=== PATIENT | male | born 1955 | race Caucasian/White ===

== ENCOUNTER → 2022-09-11 | Outpatient (CLI) | payer MEDICARE ==
--- NOTE | 2022-09-11 14:00 | CT ---
EXAMINATION TYPE: CT abdomen pelvis w con CT DLP: 1822 mGycm, Automated exposure control for dose reduction was used. DATE OF EXAM: 09/11/2022 12:41 PM COMPARISON: CT abdomen pelvis most recent from 03/05/2016. CLINICAL INDICATION:Male, 66 years old with history of R10.9 ABDOMINAL PAIN; TECHNIQUE: Standard CT of the abdomen and pelvis following the administration of 70 cc of Isovue 30 0 IV contrast material and oral contrast. Coronal and sagittal reformats were performed. FINDINGS: LOWER CHEST: Unremarkable ABDOMEN LIVER: Diffusely hypoattenuating parenchyma. GALLBLADDER AND BILE DUCTS: Cholelithiasis. No ductal dilatation. PANCREAS: Unremarkable. SPLEEN: Unremarkable. ADRENAL GLANDS: Unremarkable. KIDNEYS AND URETERS: No evidence of hydronephrosis or renal calculus. Bilateral renal cysts identifie d with the largest involving the superior pole of the right kidney measuring 4.0 cm and largest invol ving the mid left kidney measuring 3.7 cm nonspecific bilateral perinephric fat stranding. Contrast i s demonstrated within both collecting systems on the delayed phase. PELVIS BLADDER: Unremarkable REPRODUCTIVE: Brachytherapy seeds demonstrated within the prostatectomy bed. ABDOMEN & PELVIS STOMACH AND BOWEL: Stomach and duodenum are unremarkable. No focal wall thickening. Distal colonic di verticulosis without evidence for acute diverticulitis. Enteric contrast reaches the rectum. The appe ndix is within normal limits. No evidence of bowel obstruction. PERITONEUM: No evidence of pneumoperitoneum or free fluid. VASCULATURE: No evidence of aortic aneurysm. MUSCULOSKELETAL: No acute osseous abnormalities. Multilevel degenerative changes of the visualized sp ine. No aggressive osseous lesion. Stable likely benign vertebral hemangioma involving the L2 vertebr al body. LYMPH NODES: No gross evidence for lymphadenopathy. SOFT TISSUE/ABDOMINAL WALL: Tiny fat filled umbilical hernia. IMPRESSION: 1. No acute abdominal/pelvic process. 2. Cholelithiasis 3. Colonic diverticulosis without evidence for acute diverticulitis.
== END | disposition home or self-care (01) ==
LOC: RADCTMAIN 11:07
PROVIDERS: ATTEND Family Medicine
DX: R10.9 Unspecified abdominal pain (principal)
CPT/HCPCS: 74177; Q9967

== ENCOUNTER 2023-05-19 12:32 | Emergency (ER) | payer MEDICARE ==
[2023-05-19] MEDS ORDERED: DIPH,PERTUS(ACELL)TETVAC-LF 0.5 ML VIAL IM ONE (13:05)
[2023-05-19] MEDS ORDERED: MORPHINE SULFATE 4 MG/ML SYRINGE IVP STA (13:18)
[2023-05-19] MEDS ORDERED: KETOROLAC 15 MG/ML 1 ML VIAL IM STA (13:18)
[2023-05-19] MEDS ORDERED: LIDOCAINE 1% INJ 10MG/ML (30 ML VIAL-PF) SQ ONE (13:18)
[2023-05-19] MEDS ORDERED: KETOROLAC 15 MG/ML 1 ML VIAL IVP STA (13:20)
--- NOTE | 2023-05-19 13:59 | XR ---
EXAMINATION TYPE: XR tibia fibula RT DATE OF EXAM: 05/19/2023 1:50 PM INDICATION: Patient age:Male; 67 years old; Reason for study: trauma; COMPARISON: None TECHNIQUE: The right tibia/fibula was examined in AP and lateral projections. FINDINGS: No evidence of any acute osseous pathology, joint dislocation. Diffuse soft tissue swelling . Mild degeneration changes of the tibial plateau and patella. IMPRESSION: 1. No evidence of acute fracture. 2. Soft tissue signs of the right lower extremity.
[2023-05-19] MEDS ORDERED: AMOXIC-POT CLAV 875-125MG 1 EACH TAB PO STA (15:29)
[2023-05-19] MEDS ORDERED: CEPHALEXIN 500 MG CAP PO STA (15:30)
[2023-05-19] MEDS ORDERED: HYDROcodone/APAP 5-325MG 1 EACH TAB PO STA (15:30)
--- NOTE | 2023-05-19 15:42 | ED ---
General Adult HPI - General Chief complaint: Wound/Laceration Stated complaint: rt leg laceration Time Seen by Provider: 05/19/23 13:04 Source: patient, family, RN notes reviewed Mode of arrival: ambulatory Limitations: no limitations - History of Present Illness Initial comments: 67-year-old male with no significant past medical history presents to the emergency department with a chief complaint of laceration. Patient was working and cut his right francisco on sheet metal. He denies hitting his head, anticoagulant use. Denies numbness, tingling, weakness in the extremity. He denies any medication use prior to arrival. - Related Data Home Medications Medication Instructions Recorded Confirmed Cholestyramine (with Sugar) 4 gm PO BID 05/19/23 05/19/23 [Cholestyramine Packet] Hyoscyamine Sulfate [Hyoscyamine 0.125 mg SL TID PRN 05/19/23 05/19/23 Sulfate SL] Ibuprofen [Motrin] 800 mg PO Q8H PRN 05/19/23 05/19/23 Omeprazole [PriLOSEC] 20 mg PO DAILY 05/19/23 05/19/23 amLODIPine [Norvasc] 5 mg PO DAILY 05/19/23 05/19/23 atenoloL [Tenormin] 50 mg PO DAILY 05/19/23 05/19/23 traMADol HCL 50 mg PO TID PRN 05/19/23 05/19/23 Previous Rx's Medication Instructions Recorded Cephalexin [Keflex] 500 mg PO Q6HR #40 cap 05/19/23 HYDROcodone/APAP 5-325MG [[place] 5] 1 each PO Q6HR PRN #12 tab 05/19/23 Allergies Allergy/AdvReac Type Severity Reaction Status Date / Time No Known Allergies Allergy Verified 05/19/23 15:06 Review of Systems ROS Statement: Those systems with pertinent positive or pertinent negative responses have been documented in the HPI. ROS Other: All systems not noted in ROS Statement are negative. Past Medical History Past Medical History: Hypertension Additional Past Medical History / Comment(s): chronic back pain History of Any Multi-Drug Resistant Organisms: None Reported Past Surgical History: Hernia Repair, Prostate Surgery Past Psychological History: No Psychological Hx Reported Past Alcohol Use History: Daily Past Drug Use History: None Reported General Exam - General Exam Comments Initial Comments: General: Alert, in no acute distress Head: atraumatic normocephalic. Eyes PERRL, EOMI intact, mucous membranes moist Respiratory: Lungs clear to auscultation bilaterally Cardiovascular: Heart rate regular rate and rhythm Abdominal: Soft without guarding or rebound Extremities: Normal inspection with full range of motion and normal capillary refill, 3 cm x 2 cm Y-shaped laceration to right francisco with adipose tissue present, no range of motion, 5 out of 5 strength, RT D/PT pulses 2+ bilaterally Neuroogic: alert and oriented 3, CN II-XII intact, able to ambulate with steady gait Skin: warm dry and intact with normal color Limitations: no limitations Course Vital Signs 05/19/23 05/19/23 12:49 15:49 Temperature 98 F 98.1 F Pulse Rate 112 H 100 Respiratory 20 18 Rate Blood Pressure 153/80 149/98 O2 Sat by Pulse 97 100 Oximetry Procedures - Laceration Laceration #1 Indication: laceration Site: other Description: linear Depth: simple, single layer Anesthetic Used: lidocaine 1% Anesthesia Technique: local infiltration Amount (mls): 20 Pre-repair: wound explored, irrigated extensively Type of Sutures: vicryl Size of Sutures: 5-0 Number of Sutures: 17 Technique: simple, interrupted Complications: pain, bleeding, nerve injury Patient Tolerated Procedure: well, no complications Additional Comments: one 5-0 Vicryl placed internally for arterial occlusion Patient neurovascularly intact status post suture placement. Patient tolerated well, no complications Medical Decision Making - Medical Decision Making Was pt. sent in by a medical professional or institution (Dr. PA, W[employer], urgent care, hospital, or skilled nursing...) When possible be specific @ -[No] Did you speak to anyone other than the patient for history (EMS, parent, family, police, friend...)? What history was obtained from this source @ -[No] Did you review nursing and triage notes (agree or disagree)? Why? @ -[I reviewed and agree with nursing and triage notes] Were old charts reviewed (outside hosp., previous admission, EMS record, old EKG, old radiological studies, urgent care reports/EKG's, skilled nursing records)? Report findings @ -[No old charts were reviewed] Differential Diagnosis (chest pain, altered mental status, abdominal pain women, abdominal pain men, vaginal bleeding, weakness, fever, dyspnea, syncope, headache, dizziness, GI bleed, back pain, seizure, CVA, palpatations, mental health, musculoskeletal)? @ -[not applicable] EKG interpreted by me (3pts min.). @ -[As above] X-rays interpreted by me (1pt min.). @ -Right tib-fib x-ray reveals no evidence of fracture or foreign body CT interpreted by me (1pt min.). @ -[None done] U/S interpreted by me (1pt. min.). @ -[None done] What testing was considered but not performed or refused? (CT, X-rays, U/S, labs)? Why? @ -[None] What meds were considered but not given or refused? Why? @ -[None] Did you discuss the management of the patient with other professionals (professionals i.e. , PA, [employer]ER, lab, RT, psych nurse, addiction social worker, printed circuit boards inspector, teacher, security officer, correctional case manager)? Give summary @ -[No] Was smoking cessation discussed for >3mins.? @ -[No] Was critical care preformed (if so, how long)? @ -[No] Were there social determinants of health that impacted care today? How? (Homelessness, low income, unemployed, alcoholism, drug addiction, transportation, low edu. Level, literacy, decrease access to med. care, custodial, rehab)? @ -[No] Was there de-escalation of care discussed even if they declined (Discuss DNR or withdrawal of care, Hospice)? DNR status @ -[No] What co-morbidities impacted this encounter? (DM, HTN, Smoking, COPD, CAD, Cancer, CVA, ARF, Chemo, Hep., AIDS, mental health diagnosis, sleep apnea, morbid obesity)? @ -[None] Was patient admitted / discharged? Hospital course, mention meds given and ro peggy, prescriptions, significant lab abnormalities, going to OR and other pertinent info. @ -Discharged. This is a 67-year-old male who presents the emergency department with laceration. Patient had 17 sutures placed which she tolerated well. He was given Toradol and morphine with mild symptomatic relief. He was started on Keflex and given a prescription for [place] for pain management. Return precautions were discussed. Patient discharged in stable condition. Case discussed with Dr. Mejias [facility] who agrees with plan of care Undiagnosed new problem with uncertain prognosis? @ -[No] Drug Therapy requiring intensive monitoring for toxicity (Heparin, Nitro, Insulin, Cardizem)? @ -[No] Were any procedures done? @ -[No] Diagnosis/symptom? @ -Laceration Acute, or Chronic, or Acute on Chronic? @ -Acute Uncomplicated (without systemic symptoms) or Complicated (systemic symptoms)? @ -Uncomplicated Side effects of treatment? @ -[No] Exacerbation, Progression, or Severe Exacerbation? @ -[No] Poses a threat to life or bodily function? How? (Chest pain, USA, MS, pneumonia, PE, COPD, DKA, ARF, appy, cholecystitis, CVA, Diverticulitis, Homicidal, Suicidal, threat to staff... and all critical care pts) @ -Likelihood Disposition Clinical Impression: Laceration Disposition: HOME SELF-CARE Condition: Stable Instructions (If sedation given, give patient instructions): Care For Your Stitches (DC), Laceration (DC) Prescriptions: Cephalexin [Keflex] 500 mg PO Q6HR #40 cap HYDROcodone/APAP 5-325MG [[place] 5] 1 each PO Q6HR PRN #12 tab PRN Reason: Pain Is patient prescribed a controlled substance at d/c from ED?: No Referrals: Gordon West MD [Primary Care Provider] - 1-2 days Time of Disposition: 15:41
[2023-05-19 15:50] VITALS: BP 149/98; PULSE 100; RESP 18; TEMP 98.1
== END 2023-05-19 15:50 | disposition home or self-care (01) ==
LOC: EC 12:32
DX: S81.811A Laceration without foreign body, right lower leg, initial encounter (principal); I10 Essential (primary) hypertension; Z79.899 Other long term (current) drug therapy; Z23 Encounter for immunization; W26.8XXA Contact with other sharp object(s), not elsewhere classified, initial encounter
CPT/HCPCS: 73590; 90715; 99283; 90471; 96374; 96375; 12002; J2270; J2001; J1885

== ENCOUNTER 2023-05-31 10:19 | Emergency (ER) | payer MEDICARE ==
[2023-05-31 10:23] VITALS: RESP 18; TEMP 99.4
--- NOTE | 2023-05-31 10:31 | ED ---
Skin/Abscess/FB HPI - General Chief complaint: Skin/Abscess/Foreign Body Stated complaint: leg wound Time Seen by Provider: 05/31/23 10:30 Source: patient, RN notes reviewed, old records reviewed Mode of arrival: ambulatory Limitations: no limitations - History of Present Illness Initial comments: This is a nontoxic-appearing 67-year-old male that presents ambulatory for suture removal from right lower leg. Sutures were placed 2 weeks ago after sustaining a laceration from sheet metal. He states that he was taking Keflex for 10 days. Denies any fevers. Wound dehisced with drainage and surrounding redness. complaint: other (wound reevaluation, laceration right lower leg 2 weeks ago) -: week(s) (2) Location: RLE Severity scale (1-10): 0 Context: other (laceration from sheet metal 2 weeks ago, wound dehiscence) Associated symptoms: denies other symptoms Treatments Prior to Arrival: other (Keflex for 10 days) - Related Data Home Medications Medication Instructions Recorded Confirmed Cholestyramine (with Sugar) 4 gm PO BID 05/19/23 05/19/23 [Cholestyramine Packet] Hyoscyamine Sulfate [Hyoscyamine 0.125 mg SL TID PRN 05/19/23 05/19/23 Sulfate SL] Ibuprofen [Motrin] 800 mg PO Q8H PRN 05/19/23 05/19/23 Omeprazole [PriLOSEC] 20 mg PO DAILY 05/19/23 05/19/23 amLODIPine [Norvasc] 5 mg PO DAILY 05/19/23 05/19/23 atenoloL [Tenormin] 50 mg PO DAILY 05/19/23 05/19/23 traMADol HCL 50 mg PO TID PRN 05/19/23 05/19/23 Previous Rx's Medication Instructions Recorded Cephalexin [Keflex] 500 mg PO Q6HR #40 cap 05/19/23 HYDROcodone/APAP 5-325MG [[place] 5] 1 each PO Q6HR PRN #12 tab 05/19/23 Mupirocin 2% Oint [Bactroban 2% 1 applic TOPICAL TID #22 gm 05/31/23 Oint] Sulfamethox-Tmp 800-160Mg [Bactrim 1 each PO Q12HR 3 Days #6 tab 05/31/23 Ds] Allergies Allergy/AdvReac Type Severity Reaction Status Date / Time No Known Allergies Allergy Verified 05/31/23 10:23 Review of Systems ROS Statement: Those systems with pertinent positive or pertinent negative responses have been documented in the HPI. ROS Other: All systems not noted in ROS Statement are negative. Past Medical History Past Medical History: Hypertension Additional Past Medical History / Comment(s): chronic back pain History of Any Multi-Drug Resistant Organisms: None Reported Past Surgical History: Hernia Repair, Prostate Surgery Past Psychological History: No Psychological Hx Reported Smoking Status: Current every day smoker Past Alcohol Use History: Daily Past Drug Use History: None Reported General Exam Limitations: no limitations General appearance: alert, in no apparent distress Head exam: Present: atraumatic Eye exam: Present: normal appearance. Absent: scleral icterus, conjunctival injection, periorbital swelling Respiratory exam: Absent: respiratory distress, accessory muscle use Cardiovascular Exam: Present: regular rate Extremities exam: Present: normal capillary refill Right Lower Leg exam: Present: full ROM, tenderness (Mild), swelling, laceration (wound dehiscence), erythema. Absent: Homans' sign Ankle exam: Present: full ROM. Absent: tenderness Neurovascular tendon exam: Present: no vascular compromise. Absent: abnormal cap refill, extremity cold to touch Neurological exam: Present: alert, oriented X3 Psychiatric exam: Present: normal affect, normal mood Skin exam: Present: warm, dry, normal color. Absent: cyanosis, diaphoretic, petechiae, pallor Course Vital Signs 05/31/23 10:19 Temperature 99.4 F Pulse Rate 60 Respiratory 18 Rate Blood Pressure 170/98 O2 Sat by Pulse 98 Oximetry Medical Decision Making - Medical Decision Making Was pt. sent in by a medical professional or institution (, PA, [employer], urgent care, hospital, or skilled nursing...) When possible be specific @ -No Did you speak to anyone other than the patient for history (EMS, parent, family, police, friend...)? What history was obtained from this source @ -No Did you review nursing and triage notes (agree or disagree)? Why? @ -I reviewed and agree with nursing and triage notes Were old charts reviewed (outside hosp., previous admission, EMS record, old EKG, old radiological studies, urgent care reports/EKG's, skilled nursing records)? Report findings @ -ER visit from May 18 Differential Diagnosis (chest pain, altered mental status, abdominal pain women, abdominal pain men, vaginal bleeding, weakness, fever, dyspnea, syncope, headache, dizziness, GI bleed, back pain, seizure, CVA, palpatations, mental health, musculoskeletal)? @ -Wound dehiscence, cellulitis, abscess EKG interpreted by me (3pts min.). @ -n/a X-rays interpreted by me (1pt min.). @ -None done CT interpreted by me (1pt min.). @ -None done U/S interpreted by me (1pt. min.). @ -None done What testing was considered but not performed or refused? (CT, X-rays, U/S, labs)? Why? @ -None What meds were considered but not given or refused? Why? @ -None Did you discuss the management of the patient with other professionals (professionals i.e. , PA, [employer], lab, RT, psych nurse, dialysis social worker, casualty claims supervisor, teacher, mortgage loan officer originator, case assembler)? Give summary @ -No Was smoking cessation discussed for >3mins.? @ -yes Was critical care preformed (if so, how long)? @ -No Were there social determinants of health that impacted care today? How? (Homelessness, low income, unemployed, alcoholism, drug addiction, transportation, low edu. Level, literacy, decrease access to med. care, halfway, rehab)? @ -No Was there de-escalation of care discussed even if they declined (Discuss DNR or withdrawal of care, Hospice)? DNR status @ -No What co-morbidities impacted this encounter? (DM, HTN, Smoking, COPD, CAD, Ca ncer, CVA, ARF, Chemo, Hep., AIDS, mental health diagnosis, sleep apnea, morbid obesity)? @ -Hypertension, smoker Was patient admitted / discharged? Hospital course, mention meds given and route, prescriptions, significant lab abnormalities, going to OR and other pertinent info. @ -discharged This is a nontoxic-appearing 67-year-old male that presents ambulatory for suture removal from right lower leg. Sutures were placed 2 weeks ago after sustaining a laceration from sheet metal. He states that he was taking Keflex for 10 days. Denies any fevers. Wound dehisced with drainage and surrounding redness. Patient did not follow-up with his primary care doctor. Denies any fevers. Minimal tenderness. Pharmacy did retrieve information patient was on Keflex and Augmentin and completed course. Wound culture was sent. Dr. Mejias at bedside to evaluate the wound. Prescribed Bactrim for 3 days along with bactroban ointment. Directed to follow- up with primary care doctor in 4 days for suture removal. Patient was directed to stop smoking as this will delay wound healing. Return to the emergency room with any new or concerning symptoms including fevers, increased redness, pain or drainage Patient and are agreeable to this plan of care. Undiagnosed new problem with uncertain prognosis? @ -No Drug Therapy requiring intensive monitoring for toxicity (Heparin, Nitro, In sulin, Cardizem)? @ -No Were any procedures done? @ -No Diagnosis/symptom? @ -Wound dehiscence, cellulitis Acute, or Chronic, or Acute on Chronic? @ -Acute Uncomplicated (without systemic symptoms) or Complicated (systemic symptoms)? @ -Uncomplicated Side effects of treatment? @ -No Exacerbation, Progression, or Severe Exacerbation? @ -No Poses a threat to life or bodily function? How? (Chest pain, USA, [place], pneumonia, PE, COPD, DKA, ARF, appy, cholecystitis, CVA, Diverticulitis, Homicidal, Suicidal, threat to staff... and all critical care pts) @ -No - Lab Data Result diagrams: 05/31/23 10:48 05/31/23 10:48 Lab Results 05/31/23 05/31/23 Range/Units 10:48 10:48 WBC 7.7 (3.8-10.6) k/uL RBC 4.28 L (4.30-5.90) m/uL Hgb 14.7 (13.0-17.5) gm/dL Hct 45.0 (39.0-53.0) % MCV 105.1 H (80.0-100.0) fL MCH 34.3 (25.0-35.0) pg MCHC 32.6 (31.0-37.0) g/dL RDW 12.3 (11.5-15.5) % Plt Count 242 (150-450) k/uL MPV 7.8 Neutrophils % 75 % Lymphocytes % 14 % Monocytes % 6 % Eosinophils % 3 % Basophils % 0 % Neutrophils # 5.7 (1.3-7.7) k/uL Lymphocytes # 1.1 (1.0-4.8) k/uL Monocytes # 0.5 (0-1.0) k/uL Eosinophils # 0.2 (0-0.7) k/uL Basophils # 0.0 (0-0.2) k/uL Macrocytosis Slight Sodium 139 (137-145) mmol/L Potassium 4.3 (3.5-5.1) mmol/L Chloride 106 (98-107) mmol/L Carbon Dioxide 25 (22-30) mmol/L Anion Gap 8 mmol/L BUN 20 (9-20) mg/dL Creatinine 1.00 (0.66-1.25) mg/dL Est GFR (CKD-EPI)AfAm 90 (>60 ml/min/1.73 sqM) Est GFR (CKD-EPI)NonAf 78 (>60 ml/min/1.73 sqM) Glucose 123 H (74-99) mg/dL Calcium 9.1 (8.4-10.2) mg/dL Total Bilirubin 0.4 (0.2-1.3) mg/dL AST 30 (17-59) U/L ALT 39 (4-49) U/L Alkaline Phosphatase 87 (38-126) U/L Total Protein 6.9 (6.3-8.2) g/dL Albumin 3.8 (3.5-5.0) g/dL Disposition Clinical Impression: Cellulitis of left leg, Wound dehiscence Disposition: HOME SELF-CARE Condition: Good Additional Instructions: Take antibiotics for the next 3 days. Use Bactroban ointment once a day for the next week Prescriptions: Sulfamethox-Tmp 800-160Mg [Bactrim Ds] 1 each PO Q12HR 3 Days #6 tab Mupirocin 2% Oint [Bactroban 2% Oint] 1 applic TOPICAL TID #22 gm Is patient prescribed a controlled substance at d/c from ED?: No Referrals: Gordon West MD [Primary Care Provider] - 1-2 days Time of Disposition: 11:33
[2023-05-31 11:05] LABS: Basophils % (A) 0 %; Eosinophils # (A) 0.2 k/uL (0-0.7); Eosinophils % (A) 3 %; HGB 14.7 gm/dL (13.0-17.5); Lymphocytes # (A) 1.1 k/uL (1.0-4.8); Lymphocytes % (A) 14 %; MCH 34.3 pg (25.0-35.0); MCHC 32.6 g/dL (31.0-37.0); MCV 105.1 fL (80.0-100.0); Macrocytosis Slight; Mean Platelet Volume 7.8; Monocytes # (A) 0.5 k/uL (0-1.0); Monocytes % (A) 6 %; Neutrophils # (A) 5.7 k/uL (1.3-7.7); Neutrophils % (A) 75 %; Platelet Count 242 k/uL (150-450); RBC 4.28 m/uL (4.30-5.90); RDW 12.3 % (11.5-15.5); WBC 7.7 k/uL (3.8-10.6)
[2023-05-31 11:15] LABS: ALT 39 U/L (4-49); AST 30 U/L (17-59); African American GFR (CKD) 90 (>60 ml/min/1.73 sqM); Albumin 3.8 g/dL (3.5-5.0); Alkaline Phosphatase 87 U/L (38-126); Anion Gap 8 mmol/L; Blood Urea Nitrogen 20 mg/dL (9-20); Calcium 9.1 mg/dL (8.4-10.2); Carbon Dioxide 25 mmol/L (22-30); Chloride 106 mmol/L (98-107); Glucose 123 mg/dL (74-99); Non-African American GFR(CKD) 78 (>60 ml/min/1.73 sqM); Potassium 4.3 mmol/L (3.5-5.1); Sodium 139 mmol/L (137-145); Total Bilirubin 0.4 mg/dL (0.2-1.3); Total Protein 6.9 g/dL (6.3-8.2)
[2023-05-31] MEDS ORDERED: MUPIROCIN 2% OINT 22 GM TUBE TOPICAL STA (11:37)
[2023-05-31 12:00] VITALS: BP 118/78; PULSE 78
== END 2023-05-31 12:00 | disposition home or self-care (01) ==
LOC: EC 10:19
DX: T81.30XA Disruption of wound, unspecified, initial encounter (principal); I10 Essential (primary) hypertension; F17.200 Nicotine dependence, unspecified, uncomplicated; Z79.899 Other long term (current) drug therapy
CPT/HCPCS: 36415; 80053; 85025; 87070; 87205; 99283

== ENCOUNTER → 2023-08-05 | Outpatient (CLI) | payer MEDICARE ==
--- NOTE | 2023-08-06 12:58 | US ---
EXAMINATION TYPE: US arterial LE single level DATE OF EXAM: 08/05/2023 4:50 PM CLINICAL INDICATION: Male, 67 years old with history of L97.212 NON-PRESSURE CHRONIC ULCER OF RT CALF W/FA; Ulcer on calf since April 2023 History of: Smoker: Yes Hypertension: Yes Diabetic: No Hyperlipidemia: No TIA/CVA: No Previous Vascular Surgery: No CAD: No VT: No Vascular Ulcers: Yes on rt calf Claudication: No Gangrene: No Right Brachial Pressure: 168 Left Brachial Pressure: 175 Ankle-Brachial Indices: Right: 1.01 Left: 1.07 Toe Brachial Indices: Right: 0.73 Left: 0.63 IMPRESSION: 1. Normal bilateral ELY index.
== END | disposition home or self-care (01) ==
LOC: RADUSWWP 15:23
PROVIDERS: ATTEND Thoracic Surgery (Cardiothoracic Vascular Surgery)
DX: L97.212 Non-pressure chronic ulcer of right calf with fat layer exposed (principal)
CPT/HCPCS: 93922

== ENCOUNTER 2025-05-17 11:04 | Inpatient (IN) | payer MEDICARE ==
--- NOTE | 2025-05-17 12:22 | ED ---
Extremity Problem HPI - General Chief complaint: Extremity Problem,Nontraumatic Stated complaint: Left Foot Issue Time Seen by Provider: 05/17/25 11:58 Source: patient, RN notes reviewed Mode of arrival: ambulatory Limitations: no limitations - History of Present Illness Initial comments: 69-year-old male presents emergency department with chief complaint of left leg pain, swelling and infection. Patient states that the last couple days he has noticed increasing redness, drainage states his skin is sloughing off. Patient states that he also has noticed increasing calf pain and swelling states he usually has some issues but seems to be worsening worsening with ambulation pain no shortness of breath denies being diabetic no history of DVT. - Related Data Home Medications Medication Instructions Recorded Confirmed Cholestyramine (with Sugar) 4 gm PO BID 05/19/23 05/19/23 [Cholestyramine Packet] Hyoscyamine Sulfate [Hyoscyamine 0.125 mg SL TID PRN 05/19/23 05/19/23 Sulfate SL] Ibuprofen [Motrin] 800 mg PO Q8H PRN 05/19/23 05/19/23 Omeprazole [PriLOSEC] 20 mg PO DAILY 05/19/23 05/19/23 amLODIPine [Norvasc] 5 mg PO DAILY 05/19/23 05/19/23 atenoloL [Tenormin] 50 mg PO DAILY 05/19/23 05/19/23 traMADol HCL 50 mg PO TID PRN 05/19/23 05/19/23 Previous Rx's Medication Instructions Recorded Cephalexin [Keflex] 500 mg PO Q6HR #40 cap 05/19/23 HYDROcodone/APAP 5-325MG [Epworth 5] 1 each PO Q6HR PRN #12 tab 05/19/23 Mupirocin 2% Oint [Bactroban 2% 1 applic TOPICAL TID #22 gm 05/31/23 Oint] Sulfamethox-Tmp 800-160Mg [Bactrim 1 each PO Q12HR 3 Days #6 tab 05/31/23 Ds] Allergies Allergy/AdvReac Type Severity Reaction Status Date / Time No Known Allergies Allergy Verified 05/17/25 11:09 Review of Systems ROS Statement: Those systems with pertinent positive or pertinent negative responses have been documented in the HPI. ROS Other: All systems not noted in ROS Statement are negative. Past Medical History Past Medical History: Hypertension Additional Past Medical History / Comment(s): chronic back pain History of Any Multi-Drug Resistant Organisms: None Reported Past Surgical History: Hernia Repair, Prostate Surgery Past Psychological History: No Psychological Hx Reported Smoking Status: Current every day smoker Past Alcohol Use History: Daily Past Drug Use History: None Reported General Exam Limitations: no limitations General appearance: alert, in no apparent distress Head exam: Present: atraumatic, normocephalic, normal inspection Neck exam: Present: normal inspection, full ROM. Absent: tenderness, meningismus, lymphadenopathy Respiratory exam: Present: normal lung sounds bilaterally. Absent: respiratory distress, wheezes, rales, rhonchi, stridor Cardiovascular Exam: Present: regular rate, normal rhythm, normal heart sounds. Absent: systolic murmur, diastolic murmur, rubs, gallop, clicks Extremities exam: Present: other (Left calf swelling, tenderness to palpation, there is diffuse erythematous change of the lower extremity to the foot skin peeling noted, pulses are palpable faint) Neurological exam: Present: alert, oriented X3, CN II-XII intact Course Vital Signs 05/17/25 11:05 Temperature 98.6 F Pulse Rate 80 Respiratory 18 Rate Blood Pressure 148/80 O2 Sat by Pulse 100 Oximetry Medical Decision Making - Medical Decision Making Was pt. sent in by a medical professional or institution (CHRISTIE Collado, CHEMICAL ENGINEERING TEACHER, urgent care, hospital, or residential...) When possible be specific @ -[PCP Did you speak to anyone other than the patient for history (EMS, parent, family, police, friend...)? What history was obtained from this source @ -No Did you review nursing and triage notes (agree or disagree)? Why? @ -I reviewed and agree with nursing and triage notes Were old charts reviewed (outside hosp., previous admission, EMS record, old EKG, old radiological studies, urgent care reports/EKG's, residential records)? Report findings @ -No old charts were reviewed Differential Diagnosis (chest pain, altered mental status, abdominal pain women, abdominal pain men, vaginal bleeding, weakness, fever, dyspnea, syncope, headache, dizziness, GI bleed, back pain, seizure, CVA, palpatations, mental health, musculoskeletal)? @ -Cellulitis, ulceration, osteomyelitis, DVT EKG interpreted by me (3pts min.). @ -None X-rays interpreted by me (1pt min.). @ -X-ray left foot soft tissue swelling no definite osteomyelitis CT interpreted by me (1pt min.). @ -None done U/S interpreted by me (1pt. min.). @ -Ultrasound negative for acute DVT left leg there are multiple lymph nodes in the groin noted What testing was considered but not performed or refused? (CT, X-rays, U/S, labs)? Why? @ -None What meds were considered but not given or refused? Why? @ -None Did you discuss the management of the patient with other professionals (professionals i.e. DrHoda, PA, CHEMICAL ENGINEERING TEACHER, lab, RT, psych nurse, social and political studies professor, plug sorter, teacher, airfield services officer, insurance case manager)? Give summary @ -[Dr. Valle for admission Was smoking cessation discussed for >3mins.? @ -No Was critical care preformed (if so, how long)? @ -No Were there social determinants of health that impacted care today? How? (H omelessness, low income, unemployed, alcoholism, drug addiction, transportation, low edu. Level, literacy, decrease access to med. care, fdc, rehab)? @ -No Was there de-escalation of care discussed even if they declined (Discuss DNR or withdrawal of care, Hospice)? DNR status @ -No What co-morbidities impacted this encounter? (DM, HTN, Smoking, COPD, CAD, Cancer, CVA, ARF, Chemo, Hep., AIDS, mental health diagnosis, sleep apnea, morbid obesity)? @ -None Was patient admitted / discharged? Hospital course, mention meds given and route, prescriptions, significant lab abnormalities, going to OR and other pertinent info. @ -Admit the patient's father significant cellulitis, ulceration of his foot, left lower extremity patient was started on dual antibiotic therapy blood cultures were drawn. Patient will be admitted with wound care, vascular evaluation. Undiagnosed new problem with uncertain prognosis? @ -No Drug Therapy requiring intensive monitoring for toxicity (Heparin, Nitro, Insulin, Cardizem)? @ -No Were any procedures done? @ -No Diagnosis/symptom? @ -Left leg, foot cellulitis, foot ulceration Acute, or Chronic, or Acute on Chronic? @ -Acute Uncomplicated (without systemic symptoms) or Complicated (systemic symptoms)? @ -Complicated Side effects of treatment? @ -No Exacerbation, Progression, or Severe Exacerbation? @ -No Poses a threat to life or bodily function? How? (Chest pain, USA, NC, pneumonia, PE, COPD, DKA, ARF, appy, cholecystitis, CVA, Diverticulitis, Homicidal, Suicidal, threat to staff... and all critical care pts) @ -Yes possible cellulitis leading to sepsis and endorgan failure - Lab Data Result diagrams: 05/17/25 12:05/17/25 12: Lab Results 05/17/25 05/17/25 05/17/25 Range/Units 12: 12: 12: WBC 13.56 H (4.50-10.00) 10*3/uL RBC 4.16 L (4.40-5.60) 10*6/uL Hgb 14.3 (13.0-17.0) g/dL Hct 41.0 (39.6-50.0) % MCV 98.6 H (80.0-97.0) fL MCH 34.4 H (27.0-32.0) pg MCHC 34.9 (32.0-37.0) g/dL Plt Count 224 (140-440) 10*3/uL MPV 9.9 (9.5-12.2) fL Immature Gran % (Auto) 0.7 % Neutrophils % 80.4 % Lymphocytes % 5.9 % Monocytes % 11.7 % Eosinophils % 0.9 % Basophils % 0.4 % Immature Gran # 0.09 H (0.00-0.04) 10*3/uL Neutrophils # 10.91 H (1.80-7.70) 10*3/uL Lymphocytes # 0.80 L (0.90-5.00) 10*3/uL Monocytes # 1.59 H (0.20-1.00) 10*3/uL Eosinophils # 0.12 (0.04-0.35) 10*3/uL Basophils # 0.05 (0.00-0.10) 10*3/uL Sodium 138 (137-145) mmol/L Potassium 3.9 (3.5-5.1) mmol/L Chloride 103 (98-107) mmol/L Carbon Dioxide 24 (22-30) mmol/L Anion Gap 11 mmol/L BUN 20 (9-20) mg/dL Creatinine 1.25 (0.66-1.25) mg/dL Est GFR (CKD-EPI)AfAm 68 (>60 ml/min/1.73 sqM) Est GFR (CKD-EPI)NonAf 59 (>60 ml/min/1.73 sqM) Glucose 141 H (74-99) mg/dL Plasma Lactic Acid Mariusz 1.3 (0.7-2.0) mmol/L Calcium 9.4 (8.4-10.2) mg/dL Magnesium 1.7 (1.6-2.3) mg/dL Total Bilirubin 1.5 H (0.2-1.3) mg/dL AST 37 (17-59) U/L ALT 30 (4-49) U/L Alkaline Phosphatase 94 (38-126) U/L C-Reactive Protein 16.0 H (<1.0) mg/dL Total Protein 7.2 (6.3-8.2) g/dL Albumin 3.9 (3.5-5.0) g/dL Disposition Clinical Impression: Foot ulcer, left, Cellulitis of left foot, Cellulitis of leg Disposition: ADMITTED IP TO THIS HOSP Condition: Fair Referrals: Yovani West MD [Primary Care Provider] - 1-2 days Time of Disposition: 14:10
[2025-05-17 12:44] LABS: Basophils # (A) 0.05 10*3/uL (0.00-0.10); Basophils % (A) 0.4 %; Eosinophils # (A) 0.12 10*3/uL (0.04-0.35); Eosinophils % (A) 0.9 %; HCT 41.0 % (39.6-50.0); HGB 14.3 g/dL (13.0-17.0); Lymphocytes # (A) 0.80 10*3/uL (0.90-5.00); Lymphocytes % (A) 5.9 %; MCH 34.4 pg (27.0-32.0); MCHC 34.9 g/dL (32.0-37.0); MCV 98.6 fL (80.0-97.0); Monocytes # (A) 1.59 10*3/uL (0.20-1.00); Monocytes % (A) 11.7 %; Neutrophils # (A) 10.91 10*3/uL (1.80-7.70); Neutrophils % (A) 80.4 %; Platelet Count 224 10*3/uL (140-440); RBC 4.16 10*6/uL (4.40-5.60); RDW 12.2 % (11.5-14.5); WBC 13.56 10*3/uL (4.50-10.00)
[2025-05-17 13:03] LABS: ALT 30 U/L (4-49); AST 37 U/L (17-59); African American GFR (CKD) 68 (>60 ml/min/1.73 sqM); Albumin 3.9 g/dL (3.5-5.0); Alkaline Phosphatase 94 U/L (38-126); Anion Gap 11 mmol/L; Blood Urea Nitrogen 20 mg/dL (9-20); Calcium 9.4 mg/dL (8.4-10.2); Carbon Dioxide 24 mmol/L (22-30); Chloride 103 mmol/L (98-107); Glucose 141 mg/dL (74-99); Magnesium 1.7 mg/dL (1.6-2.3); Non-African American GFR(CKD) 59 (>60 ml/min/1.73 sqM); Potassium 3.9 mmol/L (3.5-5.1); Sodium 138 mmol/L (137-145); Total Protein 7.2 g/dL (6.3-8.2)
--- NOTE | 2025-05-17 13:19 | US ---
EXAMINATION TYPE: US venous doppler duplex LE LT DATE OF EXAM: 05/17/2025 12:37 PM COMPARISON: NONE CLINICAL INDICATION: Male, 69 years old with history of pain; Previous LLE extremity injury 6 years a go. New onset LLE redness and swelling, Pain TECHNIQUE: The lower extremity deep venous system is examined utilizing real time linear array sonog catherine with graded compression, color doppler sonography, and spectral doppler. SIDE PERFORMED: Left FINDINGS: VESSELS IMAGED: Common Femoral Vein Deep Femoral Vein Greater Saphenous Vein * Femoral Vein Popliteal Vein Small Saphenous Vein * Proximal Calf Veins (* superficial vessels) Left Leg: Negative for DVT, Color Doppler imaging shows patency of the vessels. Spectral waveforms a re within normal limits. Multiple enlarged lymph nodes seen in groin area. These measure up to 2.7 x 2.3 x 1.3 cm. IMPRESSION: 1. No evidence for DVT left lower extremity imaged from the groin to the upper calf. 2. Some left inguinal adenopathy measuring up to 2.3 cm short axis may be reactive/post inflammatory. Careful clinical follow-up recommended to ensure involution. If suspicious clinical features develop or if there is progressive enlargement, tissue sampling may be needed. [facility], , 05/17/2025 1:17 PM
[2025-05-17] MEDS ORDERED: VANCOMYCIN IV PER PHARMACY 1 EACH MISC MISCELLANE PRN (14:04)
[2025-05-17] MEDS ORDERED: HYDROcodone/APAP 5-325MG 1 EACH TAB PO PRN (14:10)
[2025-05-17] MEDS ORDERED: NALOXONE 0.4 MG/ML 1 ML VIAL IV PRN (14:10)
[2025-05-17] MEDS ORDERED: ONDANSETRON 4 MG/2 ML VIAL IVP PRN (14:10)
--- NOTE | 2025-05-17 14:20 | XR ---
EXAMINATION TYPE: XR foot complete LT DATE OF EXAM: 05/17/2025 2:14 PM COMPARISON: None CLINICAL INDICATION: Male, 69 years old with history of infection; PHH, pain TECHNIQUE: 3 views FINDINGS: Marked diffuse soft tissue swelling. Small plantar heel spur. No acute fracture, subluxation, or disl ocation. Os peroneum. No periostitis or osteolysis is seen. There may be mild pes planus. IMPRESSION: Marked diffuse soft tissue swelling could represent venous insufficiency, edema, or cellulitis. Possi ble underlying pes planus. Plantar heel spur. No acute osseous abnormality seen. [facility], Workstation: [facility], 05/17/2025 2:17 PM
[2025-05-17] MEDS: VANCOMYCIN 2,000 MG in SODIUM CHLORIDE 0.9% 500 ML 500 ML IVPB ONE (14:38)
[2025-05-17] MEDS: PIPERACILLIN-TAZOBACTAM 3.375 GM in SODIUM CHLORIDE 0.9% 100 ML IVPB SCH (18:05)
--- NOTE | 2025-05-17 18:14 | P.GSCN ---
History of Present Illness History of present illness: 69-year-old gentleman acute Emergency room with a history of pain in the left foot and ankle for the last few days. Formed some blister on the left foot big toe lateral aspect swelling redness also left lower extremity has some redness and cellulitis. Patient has a callus on the plantar aspect of the left foot there is some fluctuation tenderness noted x-ray shows no fractures noted no DVT noted by a venous ultrasound Medical history no history of diabetes patient history of hypertension controlled with meds Surgical history patient had a hernia and prostate surgery in the past On examination neck supple no bruit Chest clear good auscultation good air entry both lung first second sound present Abdomen soft nontender Vascular femorals are 1+ bilateral PT DP palpable bilateral lower extremity has a brown-red duration of lower extremity and also left foot has a blister form ation which is opened up and between big toe and second toe the there is some skin sloughing noted Plan is we clean the wound patient patient has been taken and be placed silver alginate between the big toe and second toe Plan is we will can continue local wound care with IV antibiotic per infectious disease most likely this gentleman will need debridement including callus excision possible left big toe amputation we will follow with you I will reevaluate the I will reevaluate the left big toe on Thursday silver alginate has been placed every 1 pillow elevation most likely this week patient has a venous hypertension or great saphenous vein reflux involving the great saphenous vein and possible short saphenous Past Medical History Past Medical History: Hypertension Additional Past Medical History / Comment(s): chronic back pain History of Any Multi-Drug Resistant Organisms: None Reported Past Surgical History: Hernia Repair, Prostate Surgery Past Psychological History: No Psychological Hx Reported Smoking Status: Current every day smoker Past Alcohol Use History: Daily Past Drug Use History: None Reported Medications and Allergies Home Medications Medication Instructions Recorded Confirmed Type Cholestyramine (with Sugar) 4 gm PO DAILY 05/19/23 05/17/25 History [Cholestyramine Packet] Hyoscyamine Sulfate [Hyoscyamine 0.125 mg SL QID PRN 05/19/23 05/17/25 History Sulfate SL] Omeprazole [PriLOSEC] 20 mg PO DAILY 05/19/23 05/17/25 History amLODIPine [Norvasc] 5 mg PO DAILY 05/19/23 05/17/25 History atenoloL [Tenormin] 50 mg PO DAILY 05/19/23 05/17/25 History Ibuprofen [Motrin] 800 mg PO Q6H PRN 05/17/25 05/17/25 History Psyllium Husk 100% [Metamucil 6 gm PO DAILY 05/17/25 05/17/25 History Packet] Allergies Allergy/AdvReac Type Severity Reaction Status Date / Time No Known Allergies Allergy Verified 05/17/25 15:08 Surgical - Exam Vital Signs Temp Pulse Resp BP Pulse Ox 98.6 F 80 18 148/80 100 05/17/25 11:05 05/17/25 11:05 05/17/25 11:05 05/17/25 11:05 05/17/25 11:05 Results - Labs 05/17/25 12:29 05/17/25 12:29 Abnormal Lab Results - Last 24 Hours (Table) 05/17/25 05/17/25 Range/Units 12:29 12:29 WBC 13.56 H (4.50-10.00) 10*3/uL RBC 4.16 L (4.40-5.60) 10*6/uL MCV 98.6 H (80.0-97.0) fL MCH 34.4 H (27.0-32.0) pg Immature Gran # 0.09 H (0.00-0.04) 10*3/uL Neutrophils # 10.91 H (1.80-7.70) 10*3/uL Lymphocytes # 0.80 L (0.90-5.00) 10*3/uL Monocytes # 1.59 H (0.20-1.00) 10*3/uL Glucose 141 H (74-99) mg/dL Total Bilirubin 1.5 H (0.2-1.3) mg/dL C-Reactive Protein 16.0 H (<1.0) mg/dL Diabetes panel 05/17/25 Range/Units 12:29 Sodium 138 (137-145) mmol/L Potassium 3.9 (3.5-5.1) mmol/L Chloride 103 (98-107) mmol/L Carbon Dioxide 24 (22-30) mmol/L BUN 20 (9-20) mg/dL Creatinine 1.25 (0.66-1.25) mg/dL Glucose 141 H (74-99) mg/dL Calcium 9.4 (8.4-10.2) mg/dL AST 37 (17-59) U/L ALT 30 (4-49) U/L Alkaline Phosphatase 94 (38-126) U/L Total Protein 7.2 (6.3-8.2) g/dL Albumin 3.9 (3.5-5.0) g/dL Calcium panel 05/17/25 Range/Units 12:29 Calcium 9.4 (8.4-10.2) mg/dL Albumin 3.9 (3.5-5.0) g/dL Pituitary panel 05/17/25 Range/Units 12:29 Sodium 138 (137-145) mmol/L Potassium 3.9 (3.5-5.1) mmol/L Chloride 103 (98-107) mmol/L Carbon Dioxide 24 (22-30) mmol/L BUN 20 (9-20) mg/dL Creatinine 1.25 (0.66-1.25) mg/dL Glucose 141 H (74-99) mg/dL Calcium 9.4 (8.4-10.2) mg/dL Adrenal panel 05/17/25 Range/Units 12:29 Sodium 138 (137-145) mmol/L Potassium 3.9 (3.5-5.1) mmol/L Chloride 103 (98-107) mmol/L Carbon Dioxide 24 (22-30) mmol/L BUN 20 (9-20) mg/dL Creatinine 1.25 (0.66-1.25) mg/dL Glucose 141 H (74-99) mg/dL Calcium 9.4 (8.4-10.2) mg/dL Total Bilirubin 1.5 H (0.2-1.3) mg/dL AST 37 (17-59) U/L ALT 30 (4-49) U/L Alkaline Phosphatase 94 (38-126) U/L Total Protein 7.2 (6.3-8.2) g/dL Albumin 3.9 (3.5-5.0) g/dL
[2025-05-17] MEDS: AMPICILLIN-SULBACTAM 3 GM in SODIUM CHLORIDE 0.9% 100 ML IVPB SCH (18:40)
--- NOTE | 2025-05-17 22:03 | P.CONS ---
History of Present Illness - Reason for Consult Consult date: 05/17/25 Foot ulceration and cellulitis Requesting physician: Norbert Schaefer - Chief Complaint Left foot pain swelling redness x days - History of Present Illness Patient is a 69-year-old male with a past medical history significant for hypertension chronic back pain presenting to the hospital for evaluation of left foot pain swelling and redness patient mention he did have a chronic swelling to the lower extremity however over the last few days noticed to have increasing swelling advised especially to the left big toe web and started having some drainage patient complaining of increasing pain and swelling which is extending all the way to the left calf area pain is moderate intensity dull aching to sharp with associated swelling redness as well as drainage patient denies high-grade fever on presentation to the hospital patient was afebrile no fever have recorded subsequently patient was not tachycardic hypotensive or hypoxic patient did have a white count of 13.56 creatinine 1.25 electrolytes are normal bilirubin is 1.5 rest of the liver enzymes are normal CRP is 16, patient did have a x-ray of the foot which shows mild diffuse soft tissue swelling could represent venous insufficiency edema or cellulitis patient also have venous Doppler study that was negative for DVT did shows multiple enlarged lymph node in the groin area patient was started on vancomycin and Zosyn admitted to the hospital infectious disease was consulted for further management of antibiotic therapy Review of Systems Positive point and negatives has been mentioned in the HPI, complete review of systems was performed and all other systems are negative Past Medical History Past Medical History: Hypertension Additional Past Medical History / Comment(s): chronic back pain History of Any Multi-Drug Resistant Organisms: None Reported Past Surgical History: Hernia Repair, Prostate Surgery Past Psychological History: No Psychological Hx Reported Smoking Status: Current every day smoker Past Alcohol Use History: Daily Past Drug Use History: None Reported Medications and Allergies Home Medications Medication Instructions Recorded Confirmed Type Cholestyramine (with Sugar) 4 gm PO DAILY 05/19/23 05/17/25 History [Cholestyramine Packet] Hyoscyamine Sulfate [Hyoscyamine 0.125 mg SL QID PRN 05/19/23 05/17/25 History Sulfate SL] Omeprazole [PriLOSEC] 20 mg PO DAILY 05/19/23 05/17/25 History amLODIPine [Norvasc] 5 mg PO DAILY 05/19/23 05/17/25 History atenoloL [Tenormin] 50 mg PO DAILY 05/19/23 05/17/25 History Ibuprofen [Motrin] 800 mg PO Q6H PRN 05/17/25 05/17/25 History Psyllium Husk 100% [Metamucil 6 gm PO DAILY 05/17/25 05/17/25 History Packet] Allergies Allergy/AdvReac Type Severity Reaction Status Date / Time No Known Allergies Allergy Verified 05/17/25 15:08 Physical Exam Vitals: Vital Signs Temp Pulse Resp BP Pulse Ox 05/17/25 16:38 98 F 70 18 117/81 98 05/17/25 16:09 98 F 69 18 116/76 97 05/17/25 11:05 98.6 F 80 18 148/80 100 Intake and Output 05/17/25 05/17/25 05/17/25 06:59 14:59 22:59 Other: Weight 131.088 kg 131.088 kg GENERAL DESCRIPTION: Elderly male up in bed, no distress. No tachypnea or accessory muscle of respiration use. HEENT: Shows Pallor , no scleral icterus. Oral mucous membrane is dry. NECK: Trachea central, no thyromegaly. LUNGS: Unlabored breathing. Clear to auscultation anteriorly. No wheeze or crackle. HEART: S1, S2, regular rate and rhythm. No loud murmur ABDOMEN: Soft, no tenderness , guarding or rigidity, no organomegaly EXTREMITIES: Left foot did have significant swelling he did have purulent drainage in the first toe web Which has been cultured with the swelling and redness extending to the left lower extremity SKIN: No rash, no masses palpable. NEUROLOGICAL: The patient is awake, alert, oriented x3, mood and affect normal. Results CBC & Chem 7: 05/17/25 12:29 05/18/25 04:04 Labs: Abnormal Lab Results - Last 24 Hours (Table) 05/17/25 05/17/25 Range/Units 12:29 12:29 WBC 13.56 H (4.50-10.00) 10*3/uL RBC 4.16 L (4.40-5.60) 10*6/uL MCV 98.6 H (80.0-97.0) fL MCH 34.4 H (27.0-32.0) pg Immature Gran # 0.09 H (0.00-0.04) 10*3/uL Neutrophils # 10.91 H (1.80-7.70) 10*3/uL Lymphocytes # 0.80 L (0.90-5.00) 10*3/uL Monocytes # 1.59 H (0.20-1.00) 10*3/uL Glucose 141 H (74-99) mg/dL Total Bilirubin 1.5 H (0.2-1.3) mg/dL C-Reactive Protein 16.0 H (<1.0) mg/dL Assessment and Plan (1) Foot abscess, left Current Visit: Yes Status: Acute Code(s): L02.612 - CUTANEOUS ABSCESS OF LEFT FOOT SNOMED Code(s): 66024008721651038 (2) Cellulitis of left foot Current Visit: Yes Status: Acute Code(s): L03.116 - CELLULITIS OF LEFT LOWER LIMB SNOMED Code(s): 31165670604595798 (3) Foot ulcer, left Current Visit: Yes Status: Acute Code(s): L97.529 - NON-PRESSURE CHRONIC ULCER OTH PRT LEFT FOOT W UNSP SEVERITY SNOMED Code(s): 630501178 Plan: 1patient presented hospital with extensive left foot infection in this patient who did have evidence of at least foot and worsening infection to the first toe web concerning for an abscess and will need to cover for both gram-positive as well as gram-negative pathogen 2-local cultures obtained that will guide further antibiotic therapy 3. Will consult vascular surgery for surgical I&D and deep culture-this was discussed with the vascular surgeon on the phone 4-patient will be treated with vancomycin pharmacy to dose however switch Zosyn to Unasyn to decrease risk of nephrotoxicity Multiple question concern answered We will follow on clinical condition and cultures to further adjust medication if needed Thank you for this consultation we will follow the patient along with you Dictation was produced using [employer] dictation software. please excuse any grammatical, word or spelling errors. Time with Patient: Greater than 30
[2025-05-17] MEDS ORDERED: HYOSCYAMINE SULFATE 0.125 MG TAB PO PRN (22:46)
[2025-05-18 00:17] LABS: NT-Pro-B-Type Natriuretic Pept 1640.0 pg/mL
--- NOTE | 2025-05-18 00:30 | HP ---
HISTORY AND PHYSICAL HISTORY OF PRESENT ILLNESS: Seen in the emergency room, came in with extensive left foot infection with severe edema to the lower legs, negative for DVT on ultrasound, increased swelling. No history of diabetes or DVTs. Increased redness and drainage over the past few days. HOME MEDICINES: 1. Prilosec 20 daily. 2. Rabson p.r.n. 3. p.r.n. 4. Norvasc 5 mg daily. 5. Tenormin 50 daily. 6. Tramadol 50 t.i.d. ALLERGIES: Negative. PHYSICAL EXAMINATION: VITAL SIGNS: Temperature 98.6, pulse 80, blood pressure 140/80, respirations 16 to 18. CARDIOVASCULAR: S1, S2. LUNGS: Transmitted upper airway sounds. GI: Soft. HEMATOLOGY: Negative Homans. PSYCH: Fair mood and affect. EXTREMITIES: Swelling to bilateral legs, left greater than right with redness from the knee down to the foot with eschar and open wounds to the dorsum of the great toe and between the toes, most likely has osteomyelitis of the left foot and first digit has extensive cellulitis. Prognosis guarded. Please see further orders. IV Zosyn, Unasyn, vancomycin. Wound cultures. Infectious Disease, Vascular consult. Please see further orders. MMODL / IJN: [id number] /
[2025-05-18 04:42] LABS: African American GFR (CKD) 77 (>60 ml/min/1.73 sqM); Non-African American GFR(CKD) 67 (>60 ml/min/1.73 sqM)
[2025-05-18] MEDS: PANTOPRAZOLE 40 MG TABLET PO SCH (06:47)
[2025-05-18] MEDS ORDERED: VANCOMYCIN 2,000 MG in SODIUM CHLORIDE 0.9% 500 ML 500 ML IVPB SCH (09:00)
[2025-05-18] MEDS: PSYLLIUM HUSK 100% 6 GM PACKET PO SCH (09:45)
[2025-05-18] MEDS: amLODIPine 5 MG TAB PO SCH (09:46)
[2025-05-18] MEDS: CHOLESTYRAMINE RESIN 4 GM PACKET PO SCH (09:49)
[2025-05-18] MEDS: VANCOMYCIN 2,000 MG in SODIUM CHLORIDE 0.9% 500 ML 500 ML IVPB SCH ×2 (10:37→21:19)
[2025-05-18] MEDS: ACETAMINOPHEN TAB 325 MG TAB PO PRN (15:53)
--- NOTE | 2025-05-18 15:54 | P.PN ---
Progress Note - Text 69-year-old gentleman patient came with marked redness and of the left big toe and also plantar aspect of the callus patient is an IV antibiotic under care of infectious disease we change dressing yesterday we placed silver alginate and today will change dressing there is less redness noted on the plantar aspect of the foot and the big toe no discharge noted at this point we have placed the silver alginate as an dressing was applied patient is responding to IV antibiotic and local wound care we will watch very closely we will change the dressing tomorrow
--- NOTE | 2025-05-18 16:14 | P.PN ---
Subjective Progress Note Date: 05/18/25 Principal diagnosis: Reason for follow-up is left foot abscess and cellulitis Patient is a 69-year-old male with a past medical history significant for hypertension chronic back pain admitted to hospital with left foot abscess and cellulitis. On today's evaluation that is 05/18/2025,the patient did have low-grade fever 100.1 F this afternoon, patient is on room air not requiring supplemental oxygen and denies any shortness of breath no chest pain or cough.Patient denies having any nausea or vomiting, no abdominal pain and no diarrhea has been reported mention swelling redness to the foot has decreased. Patient did have a creatinine of 1.12 cultures currently pending Objective - Vital Signs Vital signs: Vital Signs Temp 99.2 F 05/18/25 15:51 Pulse 65 05/18/25 15:48 Resp 16 05/18/25 15:48 BP 120/74 05/18/25 15:48 Pulse Ox 97 05/18/25 15:48 FiO2 Intake & Output 05/17/25 05/18/25 05/18/25 18:59 06:59 18:59 Intake Total 750 Balance 750 Weight 131.088 kg Intake: Oral 750 Other: Voiding Method Toilet # Voids 1 2 - Exam GENERAL DESCRIPTION: An elderly male lying in bed in no distress RESPIRATORY SYSTEM: Unlabored breathing , decreased breath sounds at bases HEART: S1 S2 regular rate and rhythm , ABDOMEN: Soft , no tenderness EXTREMITIES: Left foot is currently dressed no drainage - Labs CBC & Chem 7: 05/17/25 12:29 05/18/25 04:04 Labs: Microbiology - Last 24 Hours (Table) 05/17/25 17:31 Gram Stain - Preliminary Foot - Left Assessment and Plan (1) Foot abscess, left Current Visit: Yes Status: Acute Code(s): L02.612 - CUTANEOUS ABSCESS OF LEFT FOOT SNOMED Code(s): 52229243566670009 (2) Cellulitis of left foot Current Visit: Yes Status: Acute Code(s): L03.116 - CELLULITIS OF LEFT LOWER LIMB SNOMED Code(s): 95457596308154490 (3) Foot ulcer, left Current Visit: Yes Status: Acute Code(s): L97.529 - NON-PRESSURE CHRONIC ULCER OTH PRT LEFT FOOT W UNSP SEVERITY SNOMED Code(s): 501720672 Plan: 1patient presented hospital with extensive left foot infection in this patient who did have evidence of at least foot and worsening infection to the first toe web concerning for an abscess and will need to cover for both gram-positive as well as gram-negative pathogen 2-local cultures obtained which are currently pending 3. Vascular surgery on the case awaiting I&D and deep culture 4-patient will be treated with vancomycin pharmacy to dose and Unasyn while waiting for the culture to finalize Dictation was produced using [employer] dictation software. please excuse any grammatical, word or spelling errors.
[2025-05-18] MEDS: IBUPROFEN 800 MG TAB PO PRN (21:14)
[2025-05-19 05:10] LABS: African American GFR (CKD) 88 (>60 ml/min/1.73 sqM); Anion Gap 8 mmol/L; Blood Urea Nitrogen 15 mg/dL (9-20); Calcium 8.7 mg/dL (8.4-10.2); Carbon Dioxide 22 mmol/L (22-30); Chloride 109 mmol/L (98-107); Glucose 104 mg/dL (74-99); Non-African American GFR(CKD) 76 (>60 ml/min/1.73 sqM); Potassium 3.7 mmol/L (3.5-5.1); Sodium 139 mmol/L (137-145)
--- NOTE | 2025-05-19 15:30 | P.PN ---
Progress Note - Text 69-year-old diabetic male patient came to the emergency room 2 days ago with a history of infected callus plantar aspect of the foot and then involving the base of the left big toe. We treated with local wound care and IV antibiotic patient has developed more drainage pointing to local wound care patient is scheduled to have a excision of the callus and left big toe amputation. IV antibiotic under care of infectious disease keep the patient n.p.o. midnight and consent for left foot big toe and callus excision risk and complication discussed
--- NOTE | 2025-05-19 16:50 | P.PN ---
Subjective Progress Note Date: 05/19/25 Principal diagnosis: Reason for follow-up is left foot abscess and cellulitis Patient is a 69-year-old male with a past medical history significant for hypertension chronic back pain admitted to hospital with left foot abscess and cellulitis. On today's evaluation that is 05/19/2025, the patient continues to be afebrile, the patient is on room air and breathing comfortably, the Pt denies having any chest pain or cough, the patient denies having any abdominal pain no vomiting or any diarrhea and denies any worsening pain to the left foot daily. Patient did have a creatinine 1.01 local culture current growing Citrobacter Objective - Vital Signs Vital signs: Vital Signs Temp 97.6 F 05/19/25 07:00 Pulse 62 05/19/25 15:00 Resp 16 05/19/25 15:00 BP 122/74 05/19/25 15:00 Pulse Ox 98 05/19/25 15:00 FiO2 Intake & Output 05/18/25 05/19/25 05/19/25 18:59 06:59 18:59 Intake Total 750 400 Balance 750 400 Intake: Oral 750 400 Other: Voiding Method Toilet # Voids 2 2 1 - Exam GENERAL DESCRIPTION: An elderly male lying in bed in no distress RESPIRATORY SYSTEM: Unlabored breathing , decreased breath sounds at bases HEART: S1 S2 regular rate and rhythm , ABDOMEN: Soft , no tenderness EXTREMITIES: Left foot is currently dressed no drainage - Labs CBC & Chem 7: 05/17/25 12:29 05/19/25 04:15 Labs: Abnormal Lab Results - Last 24 Hours (Table) 05/19/25 Range/Units 04:15 Chloride 109 H (98-107) mmol/L Glucose 104 H (74-99) mg/dL Microbiology - Last 24 Hours (Table) 05/17/25 17:31 Gram Stain - Preliminary Foot - Left Wound Culture - Preliminary Citrobacter koseri 05/17/25 12:29 Blood Culture - Preliminary Blood Assessment and Plan (1) Foot abscess, left Current Visit: Yes Status: Acute Code(s): L02.612 - CUTANEOUS ABSCESS OF LEFT FOOT SNOMED Code(s): 87572862304742260 (2) Cellulitis of left foot Current Visit: Yes Status: Acute Code(s): L03.116 - CELLULITIS OF LEFT LOWER LIMB SNOMED Code(s): 41285667008486906 (3) Foot ulcer, left Current Visit: Yes Status: Acute Code(s): L97.529 - NON-PRESSURE CHRONIC ULCER OTH PRT LEFT FOOT W UNSP SEVERITY SNOMED Code(s): 447714556 Plan: 1patient presented hospital with extensive left foot infection in this patient who did have evidence of at least foot and worsening infection to the first toe web concerning for an abscess and will need to cover for both gram-positive as well as gram-negative pathogen 2-local cultures obtained which are currently growing Citrobacter 3. Vascular surgery on the case and per discussion he may need amputation of the big toe and the patient seem to be agreeable to it 4-patient with Romycin and Unasyn will be discontinued start the patient on Zosyn while waiting for the final sensitivity on Citrobacter Dictation was produced using [employer] software. please excuse any grammatical, word or spelling errors.
[2025-05-19] MEDS: PIPERACILLIN-TAZOBACTAM 3.375 GM in SODIUM CHLORIDE 0.9% 100 ML IVPB SCH (17:22)
--- NOTE | 2025-05-20 01:24 | PN ---
PROGRESS NOTE DATE OF SERVICE: 05/19/2025 SUBJECTIVE: The patient is a 69-year-old white male scheduled for amputation of the toe tomorrow with Dr. Perez for severe osteomyelitis of the foot, cellulitis of the lower legs. OBJECTIVE: CARDIOVASCULAR: S1-S2. LUNGS: Transmitted upper airway sounds. GI: Soft. HEMATOLOGY: Negative Homans. VITAL SIGNS: Reviewed. ASSESSMENT AND PLAN: Left foot and leg cellulitis abscess, great toe amputation, most likely osteomyelitis of the 1st digit. Continue on heparin subcu, pain control, etc. IV antibiotics per Dr. Izaguirre. Prognosis guarded. MMODL / IJN: [id number] /
--- NOTE | 2025-05-20 01:53 | PN ---
PROGRESS NOTE SUBJECTIVE: Admitted with left leg cellulitis, abscess. The patient is slowly improving. Seen yesterday, 05/18/2025. Dr. Perez has evaluated for possible toe amputation, osteomyelitis with IV Maxipime given. OBJECTIVE: CARDIOVASCULAR: S1-S2. LUNGS: Clear. GI: Soft. HEMATOLOGY: Negative Homans. PSYCH: Fair mood and affect. ASSESSMENT AND PLAN: Left foot and leg cellulitis abscess. Prognosis is guarded. Ambulate as tolerated. Follow up in the next 24 to 48 hours for possible amputation. Continue broad-spectrum antibiotics. MMODL / IJN: [id number] /
--- NOTE | 2025-05-20 07:52 | XR ---
EXAMINATION TYPE: XR chest 2V DATE OF EXAM: 05/20/2025 7:19 AM COMPARISON: None CLINICAL INDICATION: Male, 69 years old with history of preop/htn; pain [facility] TECHNIQUE: XR chest 2V Frontal and lateral views of the chest. FINDINGS: Lungs/Pleura: There is no evidence of pleural effusion, focal consolidation, or pneumothorax. Pulmonary vascularity: Unremarkable. Heart/mediastinum: Cardiomediastinal silhouette is unremarkable. Musculoskeletal: No acute osseous pathology. Other findings: None IMPRESSION: No acute cardiopulmonary disease/process. [facility], , 05/20/2025 7:49 AM
[2025-05-20] MEDS ORDERED: VANCOMYCIN TROUGH DUE 1 EACH MISC MISCELLANE ONE (09:00)
[2025-05-20] MEDS ORDERED: PROPOFOL 10 MG/ML 20 ML VIAL IV ONE (12:45)
[2025-05-20] MEDS ORDERED: fentaNYL (PF) 50 MCG/ML 2 ML AMP ONE (12:45)
[2025-05-20] MEDS ORDERED: LIDOCAINE 1% INJ 10MG/ML (20 ML MDV) ONE (12:45)
[2025-05-20] MEDS ORDERED: MIDAZOLAM 2 MG/2 ML VIAL ONE (12:45)
[2025-05-20] MEDS ORDERED: ePHEDrine 50 MG/ML 1 ML VIAL ONE (12:45)
[2025-05-20] MEDS: SODIUM CHLORIDE 0.9% 1,000 ML IV ONE (12:50)
--- NOTE | 2025-05-20 16:48 | OP ---
OPERATIVE REPORT DATE OF SERVICE : PREOPERATIVE DIAGNOSIS: _wet gangrene of left great toe____. POSTOPERATIVE DIAGNOSIS: ____same_. OPERATION: Left big toe ray amputation at metatarsophalangeal joint. ESTIMATED BLOOD LOSS: SPECIMEN TAKEN: NARRATIVE: The patient was brought to the operating room. Left foot was prepped and draped in the usual sterile manner. Under general anesthesia, the incision was made on the dorsal aspect of the foot, deepened through skin fat and fascia. Elliptical excision deepened and all the plantar aspect of the plantar and dorsal tendons on the dorsal aspect were divided and then incision was deepened down to the subcutaneous tissue fat and after we reached the metatarsophalangeal joint, ligaments were divided. There was also callus on the plantar aspect, which was also excised along with the big toe. Tissue was sent for deep culture.tissue . Bleeding was controlled by using 3-0 Prolene. The wound was copiously irrigated with hydrogen peroxide and saline. After that we replaced the wound VAC pressure at 125, the patient was transferred to the recovery room in satisfactory condition. MMODL / IJN: [id number] / JOSE ANGEL
--- NOTE | 2025-05-21 10:24 | PN ---
PROGRESS NOTE The patient Dr. ePrez. He has left big toe amputation at the metatarsal joint. He has a wound VAC replaced and he has pressure at 125. Wait for further cultures. Prognosis is guarded. Ambulate as tolerated. Osteomyelitis of the foot and cellulitis of leg. Hypertension, bradycardia. Please see further orders. MMODL / IJN: [id number] /
--- NOTE | 2025-05-21 14:40 | P.PN ---
Subjective Progress Note Date: 05/20/25 Principal diagnosis: Reason for follow-up is left foot abscess and cellulitis Patient is a 69-year-old male with a past medical history significant for hypertension chronic back pain admitted to hospital with left foot abscess and cellulitis.Patient is status post left big toe amputation admitted transphalangeal joint by vascular surgery and wound VAC application. On today's evaluation that is 05/20/2024, patient did have a temperature of 97.8 F this afternoon and denies having any chills, patient is on room air and breathing comfortably no chest pain or cough, the patient did not have any nausea vomiting abdominal pain or any diarrhea denies pain to the left foot. No new lab has been obtained today cultures with Citrobacter and bacteroids Objective - Vital Signs Vital signs: Vital Signs Temp 96.8 F L 05/20/25 13:43 Pulse 57 L 05/20/25 14:13 Resp 16 05/20/25 14:13 BP 131/92 05/20/25 14:13 Pulse Ox 99 05/20/25 14:13 FiO2 Intake & Output 05/19/25 05/20/25 05/20/25 18:59 06:59 18:59 Intake Total 400 400 Output Total 25 Balance 400 375 Intake: IV 400 Oral 400 Output: Estimated Blood Loss 25 Other: Voiding Method Toilet # Voids 1 3 - Exam GENERAL DESCRIPTION: An elderly male lying in bed in no distress RESPIRATORY SYSTEM: Unlabored breathing , decreased breath sounds at bases HEART: S1 S2 regular rate and rhythm , ABDOMEN: Soft , no tenderness EXTREMITIES: Left big toe amputation site wound covered with a wound VAC - Labs CBC & Chem 7: 05/17/25 12:29 05/19/25 04:15 Labs: Microbiology - Last 24 Hours (Table) 05/17/25 17:31 Gram Stain - Final Foot - Left Wound Culture - Final Citrobacter koseri 05/17/25 12:29 Blood Culture - Preliminary Blood Assessment and Plan (1) Foot abscess, left Current Visit: Yes Status: Acute Code(s): L02.612 - CUTANEOUS ABSCESS OF LEFT FOOT SNOMED Code(s): 89017662971358615 (2) Cellulitis of left foot Current Visit: Yes Status: Acute Code(s): L03.116 - CELLULITIS OF LEFT LOWER LIMB SNOMED Code(s): 30256917503662211 (3) Foot ulcer, left Current Visit: Yes Status: Acute Code(s): L97.529 - NON-PRESSURE CHRONIC ULCER OTH PRT LEFT FOOT W UNSP SEVERITY SNOMED Code(s): 565850652 Plan: 1patient presented hospital with extensive left foot infection in this patient who did have evidence of at least foot and worsening infection to the first toe web concerning for an abscess and will need to cover for both gram-positive as well as gram-negative pathogen 2-local cultures obtained which are currently growing Citrobacter 3. Patient is status post amputation of the big toe and application of wound VAC 4-patient to continue with Zosyn while waiting for the final sensitivity on Citrobacter Dictation was produced using [employer] dictation software. please excuse any grammatical, word or spelling errors. Time with Patient: Less than 30
--- NOTE | 2025-05-21 14:41 | P.PN ---
Subjective Progress Note Date: 05/21/25 Principal diagnosis: Reason for follow-up is left foot abscess and cellulitis Patient is a 69-year-old male with a past medical history significant for hypertension chronic back pain admitted to hospital with left foot abscess and cellulitis.Patient is status post left big toe amputation admitted transphalangeal joint by vascular surgery and wound VAC application. On today's evaluation that is 05/21/2025 the patient continues to be afebrile the patient is breathing comfortably and is on room air no chest pain shortness of breath or cough no nausea vomiting abdominal pain or diarrhea denies any worsening pain to the left big toe amputation site wound. Initial culture finalized with Citrobacter and bacteroids in the OR cultures were done Objective - Vital Signs Vital signs: Vital Signs Temp 98.1 F 05/21/25 14:27 Pulse 105 H 05/21/25 14:27 Resp 18 05/21/25 14:27 BP 131/79 05/21/25 14:27 Pulse Ox 97 05/21/25 14:27 FiO2 Intake & Output 05/20/25 05/21/25 05/21/25 18:59 06:59 18:59 Intake Total 400 Output Total 25 Balance 375 Intake: IV 400 Output: Estimated Blood Loss 25 Other: Voiding Method Toilet # Voids 3 # Bowel Movements 2 - Exam GENERAL DESCRIPTION: An elderly male lying in bed in no distress RESPIRATORY SYSTEM: Unlabored breathing , decreased breath sounds at bases HEART: S1 S2 regular rate and rhythm , ABDOMEN: Soft , no tenderness EXTREMITIES: Left big toe amputation site wound covered with a wound VAC - Labs CBC & Chem 7: 05/17/25 12:29 05/19/25 04:15 Labs: Microbiology - Last 24 Hours (Table) 05/17/25 12:29 Blood Culture - Preliminary Blood 05/17/25 17:31 Anaerobic Culture - Preliminary Foot - Left Bacteroides thetaiotaomicron 05/17/25 17:31 Gram Stain - Final Foot - Left Wound Culture - Final Citrobacter koseri Assessment and Plan (1) Foot abscess, left Current Visit: Yes Status: Acute Code(s): L02.612 - CUTANEOUS ABSCESS OF LEFT FOOT SNOMED Code(s): 53125745996610520 (2) Cellulitis of left foot Current Visit: Yes Status: Acute Code(s): L03.116 - CELLULITIS OF LEFT LOWER LIMB SNOMED Code(s): 48056172913722537 (3) Foot ulcer, left Current Visit: Yes Status: Acute Code(s): L97.529 - NON-PRESSURE CHRONIC ULCER OTH PRT LEFT FOOT W UNSP SEVERITY SNOMED Code(s): 270887636 Plan: 1patient presented hospital with extensive left foot infection in this patient who did have evidence of at least foot and worsening infection to the first toe web concerning for an abscess and will need to cover for both gram-positive as w ell as gram-negative pathogen 2-local cultures obtained which are currently growing Citrobacter and bacteroids 3. Patient is status post amputation of the big toe and application of wound VAC 4-I will discontinue Zosyn and start the patient on cefepime and Flagyl will likely need a PICC line for outpatient antibiotic therapy multiple questions answered Dictation was produced using [employer] dictation software. please excuse any grammatical, word or spelling errors. Time with Patient: Less than 30
[2025-05-21] MEDS: CEFEPIME 2 GM in SODIUM CHLORIDE 0.9% 100 ML IVPB SCH (15:56)
[2025-05-21] MEDS: metroNIDAZOLE 500 MG TAB PO SCH (15:56)
--- NOTE | 2025-05-21 21:45 | PN ---
PROGRESS NOTE A 69-year-old gentleman. The patient had a left big toe ray amputation at metatarsophalangeal joint. Replaced the wound VAC. The patient is on IV antibiotic, under the care of Infectious Disease. Continue with wound VAC, and the patient is on antibiotic per Infectious Disease. MMODL / IJN: [id number] /
--- NOTE | 2025-05-22 02:30 | PN ---
PROGRESS NOTE SUBJECTIVE: Jesus Iglesias with a wound VAC on his left foot. He had a great toe amputated on the left foot. He has had a wound VAC, redness, and swelling up to the knee area. OBJECTIVE: CARDIOVASCULAR: S1, S2. LUNGS: Transmitted upper sounds. GI: Soft. HEMATOLOGY: Negative Homans. PLAN: Continue with IV antibiotics. Wait for further cultures. Wound VAC. PT, OT. Prognosis guarded. MMODL / IJN: [id number] /
[2025-05-22 07:56] LABS: Basophils # (A) 0.07 X 10*3/uL (0.00-0.10); Basophils % (A) 1.0 %; Eosinophils # (A) 0.34 X 10*3/uL (0.04-0.35); Eosinophils % (A) 4.6 %; HCT 38.0 % (39.6-50.0); HGB 12.3 g/dL (13.0-17.0); Immature Grans, Automated 1.00 %; Lymphocytes # (A) 1.17 X 10*3/uL (0.90-5.00); Lymphocytes % (A) 16.0 %; MCH 33.2 pg (27.0-32.0); MCHC 32.4 g/dL (32.0-37.0); MCV 102.7 FL (80.0-97.0); Monocytes # (A) 0.78 X 10*3/uL (0.20-1.00); Monocytes % (A) 10.6 %; NRBC Per 100 WBC 0 X 10*3/uL (0.00-0.01); Neutrophils # (A) 4.90 X 10*3/uL (1.80-7.70); Neutrophils % (A) 66.8 %; Platelet Count 385 X 10*3/uL (140-440); RBC 3.70 X 10*6/uL (4.40-5.60); RDW 12.5 % (11.5-14.5); WBC 7.33 X 10*3/uL (4.50-10.00)
[2025-05-22 08:02] LABS: Anion Gap 10.10 mmol/L (4.00-12.00); BUN/Creat Ratio 9.11 Ratio (12.00-20.00); Blood Urea Nitrogen 8.2 mg/dL (9.0-27.0); Carbon Dioxide 22.9 mmol/L (21.6-31.8); Chloride 107 mmol/L (96-109); Glucose 94 mg/dL (70-110); Potassium 3.7 mmol/L (3.5-5.5); Sodium 140 mmol/L (135-145)
[2025-05-22 08:03] LABS: ALT 23 U/L (10-49); AST 22 U/L (14-35); Albumin 3.0 g/dL (3.8-4.9); Albumin/Globulin Ratio 1.11 Ratio (1.60-3.17); Alkaline Phosphatase 73 U/L (41-126); Calcium 8.4 mg/dL (8.7-10.3); Globulin 2.7 g/dL (1.6-3.3); Total Protein 5.7 g/dL (6.2-8.2)
--- NOTE | 2025-05-22 12:58 | P.PN ---
Progress Note - Text 69-year-old gentleman patient came with a wet gangrene of the left big toe had a ray amputation at metatarsophalangeal joint we placed a wound VAC patient is under care of infectious disease for IV today we will remove the wound VAC base of the wound is clean. Use Santyl cream dressing should be changed daily basis
[2025-05-22] MEDS: COLLAGENASE 250 UNIT/GM OINTMENT 30 GM TUBE TOPICAL SCH (13:55)
--- NOTE | 2025-05-23 04:03 | PN ---
PROGRESS NOTE SUBJECTIVE: 69-year-old white male, status post toe amputation by Dr. Perez. Waiting for final cultures to come back. Remains on broad-spectrum antibiotics per Dr. Izaguirre. Big toe amputation, metatarsophalangeal joint. Wound VAC placed. Infectious Disease, IV today. So far, the patient is feeling better. OBJECTIVE: VITAL SIGNS: His temperature is 98.4, pulse 53-59, respiratory rate 16-18, blood pressure 133/81, O2 98. LUNGS: Clear. CARDIOVASCULAR: S1, S2. EXTREMITIES: 2 to 3+ edema. Stasis changes. White count 7.33, down from 13, hemoglobin 12.3, sodium 140, potassium 3.7. PLAN: Continue IV antibiotics until cultures come back. Initial culture finalizes Citrobacter, Bacteroides, and OR cultures were done. White count 13.56, BUN 15, creatinine 1.01. Left foot anaerobic culture shows Bacteroides. foot abscess, left; cellulitis, left foot; foot ulcer, left, status post amputation of great toe. Discontinue Zosyn. Remains on cefepime, Flagyl. PICC line for outpatient antibiotics. Wait for the set up prior to discharge. Wound care. MMODL / IJN: [id number] /
--- NOTE | 2025-05-23 15:39 | P.PN ---
Subjective Progress Note Date: 05/22/25 Principal diagnosis: Reason for follow-up is left foot abscess and cellulitis Patient is a 69-year-old male with a past medical history significant for hypertension chronic back pain admitted to hospital with left foot abscess and cellulitis.Patient is status post left big toe amputation admitted transphalangeal joint by vascular surgery and wound VAC application. On today's evaluation that is 05/22/2025, patient has been afebrile, patient is breathing comfortably and is currently on room air, patient denies having any chest pain and cough, patient denies nausea vomiting or diarrhea and no abdominal pain, pain to the left big toe amputation site is currently co ntrolled. Patient white count 7.33 creatinine 0.9 sed rate is 123 local culture with Citrobacter and anaerobes Objective - Vital Signs Vital signs: Vital Signs Temp 98.4 F 05/22/25 14:58 Pulse 53 L 05/22/25 14:58 Resp 18 05/22/25 14:58 BP 133/81 05/22/25 14:58 Pulse Ox 98 05/22/25 14:58 FiO2 Intake & Output 05/21/25 05/22/25 05/22/25 18:59 06:59 18:59 Intake Total 1620 550 Output Total 2 975 2 Balance -2 645 548 Intake: Oral 1620 550 Output: Urine 975 Stool 2 2 Other: Voiding Method Urinal Urinal # Voids 2 2 - Exam GENERAL DESCRIPTION: An elderly male lying in bed in no distress RESPIRATORY SYSTEM: Unlabored breathing , decreased breath sounds at bases HEART: S1 S2 regular rate and rhythm , ABDOMEN: Soft , no tenderness EXTREMITIES: Left big toe amputation site wound covered with a wound VAC - Labs CBC & Chem 7: 05/22/25 02:49 05/22/25 02:49 Labs: Abnormal Lab Results - Last 24 Hours (Table) 05/22/25 05/22/25 Range/Units 02:49 02:49 RBC 3.70 L (4.40-5.60) X 10*6/uL Hgb 12.3 L (13.0-17.0) g/dL Hct 38.0 L (39.6-50.0) % MCV 102.7 H (80.0-97.0) FL MCH 33.2 H (27.0-32.0) pg Immature Gran # 0.07 H (0.00-0.04) X 10*3/uL ESR 123 H (0-20) mm/Hr BUN 8.2 L (9.0-27.0) mg/dL BUN/Creatinine Ratio 9.11 L (12.00-20.00) Ratio Calcium 8.4 L (8.7-10.3) mg/dL Total Protein 5.7 L (6.2-8.2) g/dL Albumin 3.0 L (3.8-4.9) g/dL Albumin/Globulin Ratio 1.11 L (1.60-3.17) Ratio Microbiology - Last 24 Hours (Table) 05/17/25 12:29 Blood Culture - Final Blood 05/17/25 17:31 Anaerobic Culture - Final Foot - Left Anaerococcus vaginalis Bacteroides thetaiotaomicron Assessment and Plan (1) Foot abscess, left Current Visit: Yes Status: Acute Code(s): L02.612 - CUTANEOUS ABSCESS OF LEFT FOOT SNOMED Code(s): 74300575395388834 (2) Cellulitis of left foot Current Visit: Yes Status: Acute Code(s): L03.116 - CELLULITIS OF LEFT LOWER LIMB SNOMED Code(s): 66514842080763407 (3) Foot ulcer, left Current Visit: Yes Status: Acute Code(s): L97.529 - NON-PRESSURE CHRONIC ULCER OTH PRT LEFT FOOT W UNSP SEVERITY SNOMED Code(s): 252439891 Plan: 1patient presented hospital with extensive left foot infection in this patient who did have evidence of at least foot and worsening infection to the first toe web concerning for an abscess and will need to cover for both gram-positive as well as gram-negative pathogen 2-local cultures obtained which are currently growing Citrobacter and bacteroids 3. Patient is status post amputation of the big toe and application of wound VAC which has been discontinued and patient started on Santyl 4-patient is currently being treated with cefepime and Flagyl and likely dealing with osteomyelitis with significant elevated sed rate will need a PICC line for outpatient IV antibiotics discussed with the and the surgeon Dictation was produced using [employer] dictation software. please excuse any grammatical, word or spelling errors. Time with Patient: Less than 30
--- NOTE | 2025-05-23 15:40 | P.PN ---
Subjective Progress Note Date: 05/23/25 Principal diagnosis: Reason for follow-up is left foot abscess and cellulitis Patient is a 69-year-old male with a past medical history significant for hypertension chronic back pain admitted to hospital with left foot abscess and cellulitis.Patient is status post left big toe amputation admitted transphalangeal joint by vascular surgery and wound VAC application. On today's evaluation that is 05/23/2025, Patient is afebrile this morning patient denies having any chest pain shortness of breath or cough, the patient is currently on room air, patient denies any abdominal pain no diarrhea no nausea no vomiting. No new lab has been obtained today Objective - Vital Signs Vital signs: Vital Signs Temp 98.4 F 05/23/25 07:00 Pulse 60 05/23/25 07:00 Resp 20 05/23/25 09:40 BP 132/84 05/23/25 07:00 Pulse Ox 94 L 05/23/25 07:00 FiO2 Intake & Output 05/22/25 05/23/25 05/23/25 18:59 06:59 18:59 Intake Total 850 400 Output Total 2 100 2 Balance 848 -100 398 Intake: Oral 850 400 Output: Urine 100 Stool 2 2 Other: Voiding Method Urinal Urinal # Voids 2 1 # Bowel Movements 1 - Exam GENERAL DESCRIPTION: An elderly male lying in bed in no distress RESPIRATORY SYSTEM: Unlabored breathing , decreased breath sounds at bases HEART: S1 S2 regular rate and rhythm , ABDOMEN: Soft , no tenderness EXTREMITIES: Left big toe amputation site wound currently dressed - Labs CBC & Chem 7: 05/22/25 02:49 05/22/25 02:49 Labs: Microbiology - Last 24 Hours (Table) 05/20/25 13:15 Gram Stain - Preliminary Toe - Left First Tissue Culture - Preliminary Citrobacter koseri Staphylococcus lugdunenisis 05/17/25 12:29 Blood Culture - Final Blood 05/17/25 17:31 Anaerobic Culture - Final Foot - Left Anaerococcus vaginalis Bacteroides thetaiotaomicron Assessment and Plan (1) Foot abscess, left Current Visit: Yes Status: Acute Code(s): L02.612 - CUTANEOUS ABSCESS OF LEFT FOOT SNOMED Code(s): 53783272438642602 (2) Cellulitis of left foot Current Visit: Yes Status: Acute Code(s): L03.116 - CELLULITIS OF LEFT LOWER LIMB SNOMED Code(s): 38663391886101486 (3) Foot ulcer, left Current Visit: Yes Status: Acute Code(s): L97.529 - NON-PRESSURE CHRONIC ULCER OTH PRT LEFT FOOT W UNSP SEVERITY SNOMED Code(s): 890953640 Plan: 1patient presented hospital with extensive left foot infection in this patient who did have evidence of at least foot and worsening infection to the first toe web concerning for an abscess and will need to cover for both gram-positive as well as gram-negative pathogen 2-local cultures obtained which are currently growing Citrobacter and bacteroids 3. Patient is status post amputation of the big toe and application of wound VAC which has been discontinued and patient started on Santyl 4-patient is currently being treated with cefepime and Flagyl PICC line has been ordered and the plan is for 6-week course of IV cefepime and oral Flagyl on d ischarge unless the OR culture grew different pathogen Dictation was produced using [employer] software. please excuse any grammatical, word or spelling errors.
--- NOTE | 2025-05-24 00:03 | PN ---
PROGRESS NOTE SUBJECTIVE: A 69-year-old white male, status post left foot cellulitis, status post osteomyelitis of the great toe, is removed on the left foot. He states the cellulitis of his leg is improving. He remains on IV antibiotics, oral Flagyl, and IV cefepime. He has a new PICC line, which was given today with 6 weeks of IV antibiotics. Once set up for home, he can go home. OBJECTIVE: CARDIOVASCULAR: S1, S2. LUNGS: Decreased breath sounds x4. PSYCHIATRIC: Fair mood and affect. NEUROLOGIC: Alert and oriented x3. ASSESSMENT: Left foot cellulitis, osteomyelitis, status post toe amputation. Continue current treatment. Prognosis is guarded. PICC line, IV antibiotics for 6 weeks outpatient. MMODL / IJN: [id number] /
[2025-05-24 07:55] VITALS: BP 133/81; PULSE 95; RESP 16; TEMP 98
[2025-05-24 08:24] LABS: Basophils # (A) 0.08 X 10*3/uL (0.00-0.10); Basophils % (A) 0.8 %; Eosinophils # (A) 0.36 X 10*3/uL (0.04-0.35); Eosinophils % (A) 3.8 %; HCT 37.4 % (39.6-50.0); HGB 12.0 g/dL (13.0-17.0); Immature Grans, Automated 0.70 %; Lymphocytes # (A) 1.39 X 10*3/uL (0.90-5.00); Lymphocytes % (A) 14.7 %; MCH 32.6 pg (27.0-32.0); MCHC 32.1 g/dL (32.0-37.0); MCV 101.6 FL (80.0-97.0); Monocytes # (A) 0.81 X 10*3/uL (0.20-1.00); Monocytes % (A) 8.6 %; NRBC Per 100 WBC 0 X 10*3/uL (0.00-0.01); Neutrophils # (A) 6.73 X 10*3/uL (1.80-7.70); Neutrophils % (A) 71.4 %; Platelet Count 395 X 10*3/uL (140-440); RBC 3.68 X 10*6/uL (4.40-5.60); RDW 12.4 % (11.5-14.5); WBC 9.44 X 10*3/uL (4.50-10.00)
[2025-05-24 08:57] LABS: BUN/Creat Ratio 10.90 Ratio (12.00-20.00); Blood Urea Nitrogen 10.9 mg/dL (9.0-27.0); Glucose 111 mg/dL (70-110)
[2025-05-24 08:58] LABS: ALT 30 U/L (10-49); AST 40 U/L (14-35); Albumin 3.0 g/dL (3.8-4.9); Albumin/Globulin Ratio 1.07 Ratio (1.60-3.17); Alkaline Phosphatase 70 U/L (41-126); Anion Gap 11.00 mmol/L (4.00-12.00); Calcium 8.6 mg/dL (8.7-10.3); Carbon Dioxide 20.0 mmol/L (21.6-31.8); Chloride 109 mmol/L (96-109); Globulin 2.8 g/dL (1.6-3.3); Potassium 3.8 mmol/L (3.5-5.5); Sodium 140 mmol/L (135-145); Total Protein 5.8 g/dL (6.2-8.2)
--- NOTE | 2025-05-24 14:34 | P.PN ---
Subjective Progress Note Date: 05/24/25 Principal diagnosis: Reason for follow-up is left foot abscess and cellulitis Patient is a 69-year-old male with a past medical history significant for hypertension chronic back pain admitted to hospital with left foot abscess and cellulitis.Patient is status post left big toe amputation admitted transphalangeal joint by vascular surgery and wound VAC application. On today's evaluation that is 05/24/2025,the patient denies any fever or any chills, patient is breathing comfortably on room air, the patient denies chest pain shortness of breath and no significant cough, patient denies abdominal pain, no nausea vomiting or diarrhea. Feeling better wants to go home. Patient white count 9.44 creatinine 0.9 OR cultures growing Citrobacter as well as Staphylococcus Lugdunenisis oxacillin sensitive Objective - Vital Signs Vital signs: Vital Signs Temp 98.0 F 05/24/25 07:00 Pulse 95 05/24/25 07:00 Resp 16 05/24/25 07:00 BP 133/81 05/24/25 07:00 Pulse Ox 94 L 05/24/25 01:15 FiO2 Intake & Output 05/23/25 05/24/25 05/24/25 18:59 06:59 18:59 Intake Total 400 Output Total 2 700 Balance 398 -700 Intake: Oral 400 Output: Urine 700 Stool 2 Other: Voiding Method Urinal Urinal # Voids 1 1 - Exam GENERAL DESCRIPTION: An elderly male lying in bed in no distress RESPIRATORY SYSTEM: Unlabored breathing , decreased breath sounds at bases HEART: S1 S2 regular rate and rhythm , ABDOMEN: Soft , no tenderness EXTREMITIES: Left big toe amputation site wound currently dressed - Labs CBC & Chem 7: 05/24/25 03:33 05/24/25 03:33 Labs: Abnormal Lab Results - Last 24 Hours (Table) 05/24/25 05/24/25 Range/Units 03:33 03:33 RBC 3.68 L (4.40-5.60) X 10*6/uL Hgb 12.0 L (13.0-17.0) g/dL Hct 37.4 L (39.6-50.0) % MCV 101.6 H (80.0-97.0) FL MCH 32.6 H (27.0-32.0) pg Immature Gran # 0.07 H (0.00-0.04) X 10*3/uL Eosinophils # 0.36 H (0.04-0.35) X 10*3/uL Carbon Dioxide 20.0 L (21.6-31.8) mmol/L BUN/Creatinine Ratio 10.90 L (12.00-20.00) Ratio Glucose 111 H (70-110) mg/dL Calcium 8.6 L (8.7-10.3) mg/dL AST 40 H (14-35) U/L Total Protein 5.8 L (6.2-8.2) g/dL Albumin 3.0 L (3.8-4.9) g/dL Albumin/Globulin Ratio 1.07 L (1.60-3.17) Ratio Microbiology - Last 24 Hours (Table) 05/20/25 13:15 Anaerobic Culture - Preliminary Toe - Left First 05/20/25 13:15 Gram Stain - Final Toe - Left First Tissue Culture - Final Citrobacter koseri Staphylococcus lugdunenisis Assessment and Plan (1) Foot abscess, left Current Visit: Yes Status: Acute Code(s): L02.612 - CUTANEOUS ABSCESS OF LEFT FOOT SNOMED Code(s): 25480008141968136 (2) Cellulitis of left foot Current Visit: Yes Status: Acute Code(s): L03.116 - CELLULITIS OF LEFT LOWER LIMB SNOMED Code(s): 84371768081015348 (3) Foot ulcer, left Current Visit: Yes Status: Acute Code(s): L97.529 - NON-PRESSURE CHRONIC ULCER OTH PRT LEFT FOOT W UNSP SEVERITY SNOMED Code(s): 183462383 Plan: 1patient presented hospital with extensive left foot infection in this patient who did have evidence of at least foot and worsening infection to the first toe web concerning for an abscess and will need to cover for both gram-positive as well as gram-negative pathogen 2-local cultures obtained which are currently growing Citrobacter and bacteroids 3. Patient is status post amputation of the big toe and application of wound VAC which has been discontinued and patient started on Santyl 4-patient did have a PICC line placement, plan is for 6-week course of IV cefepime and oral Flagyl on discharge and close outpatient follow-up Dictation was produced using [employer] software. please excuse any grammatical, word or spelling errors. Time with Patient: Less than 30
[2025-05-24 15:00] VITALS: BMI 37.0
== END 2025-05-24 16:36 | disposition home health service (06) | DRG 240 ==
LOC: EC 11:04 → 1SOBS 14:37 → OBSVTOIN 14:38 → 1SOBS 16:18 → 4SSUR 05-19 16:51
PROVIDERS: ADMIT Family Medicine; ATTEND Family Medicine
PROC: 0Y6N0Z9 Detachment at Left Foot, Partial 1st Ray, Open Approach (ICD-10-PCS; principal; 2025-05-20 11:40)
PROC: 02HV33Z Insertion of Infusion Device into Superior Vena Cava, Percutaneous Approach (ICD-10-PCS; 2025-05-23)
PROC: B5181ZA Fluoroscopy of Superior Vena Cava using Low Osmolar Contrast, Guidance (ICD-10-PCS; 2025-05-23)
PROC: B548ZZA Ultrasonography of Superior Vena Cava, Guidance (ICD-10-PCS; 2025-05-23)
DX: I70.262 Atherosclerosis of native arteries of extremities with gangrene, left leg (principal); L02.612 Cutaneous abscess of left foot; L03.115 Cellulitis of right lower limb; M86.8X7 Other osteomyelitis, ankle and foot; E11.621 Type 2 diabetes mellitus with foot ulcer; B95.7 Other staphylococcus as the cause of diseases classified elsewhere; I10 Essential (primary) hypertension; L03.116 Cellulitis of left lower limb; E11.69 Type 2 diabetes mellitus with other specified complication; L97.529 Non-pressure chronic ulcer of other part of left foot with unspecified severity; B96.89 Other specified bacterial agents as the cause of diseases classified elsewhere; G89.29 Other chronic pain; M54.9 Dorsalgia, unspecified; F17.210 Nicotine dependence, cigarettes, uncomplicated; I87.2 Venous insufficiency (chronic) (peripheral); R09.89 Other specified symptoms and signs involving the circulatory and respiratory systems; R60.9 Edema, unspecified; S90.822A Blister (nonthermal), left foot, initial encounter; Z79.899 Other long term (current) drug therapy; Z87.19 Personal history of other diseases of the digestive system
CPT/HCPCS: 36415; 36573; 71046; 80048; 80053; 82565; 83036; 83605; 83735; 83880; 84443; 85025; 85652; 86140; 87040; 87070; 87075; 87077; 87186; 87205; 96365; 96366; 99285